=== PATIENT | female | born 1995 | race Caucasian/White ===

== ENCOUNTER 2017-02-28 06:12 | Emergency (ER) | payer MEDICAID ==
[2017-02-28] MEDS ORDERED: Sodium Chloride 0.9% 10 ML Syringe FLUSH PRN (06:27)
[2017-02-28] MEDS ORDERED: Ketorolac 30 MG/ML SDV IVPUSH ONE (07:06)
[2017-02-28] MEDS ORDERED: Ondansetron 4 MG/2 ML SDV IVPUSH ONE (07:07)
[2017-02-28] MEDS ORDERED: Iopamidol 755 Mg/ML 100 ML Bottle IV ONE (07:15)
--- NOTE | 2017-02-28 08:04 | ER ---
DATE SEEN: 02/28/2017 CHIEF COMPLAINT: Abdominal pain. HISTORY OF PRESENT ILLNESS: This is a 22-year-old female, complaining of abdominal pain for about 2 weeks, midepigastric pain with no radiation, associated with vomiting. Symptoms have not improved despite envc-oez-gxcdxll medications. PAST MEDICAL HISTORY: She has anxiety, ADHD, and no surgeries. Of note, she was here 2 years ago with similar symptoms. A CT at that time showed mesenteric adenitis. REVIEW OF SYSTEMS: Denies any chest pain, fever or chills, or urinary symptoms. Last period was about a week ago, normal. PHYSICAL EXAMINATION: GENERAL: She is anxious, but not in distress. VITAL SIGNS: Normal blood pressure and temperature. ABDOMEN: Nondistended. Exquisitely tender in the epigastrium and around the umbilicus. No rebound. Bowel sounds are present. No masses. IMPRESSION: Abdominal pain of uncertain etiology. PLAN: My plan is to obtain a CBC, CMP, amylase, urine , and CT of the abdomen and pelvis. I will have my colleague coming in on relay the results and discuss disposition and treatment afterwards. Time seen is 1825 hours. /[id number] KAYA/TESS
[2017-02-28] MEDS ORDERED: Alum Hydroxide/Mag Hydroxide 15 ML, Lidocaine 2% 15 ML PO ONE ×2 (09:16)
--- NOTE | 2017-02-28 09:58 | EDM.PDOC ---
ED HPI GENERAL MEDICAL PROBLEM - General Chief Complaint: Abdominal Pain Stated Complaint: STOMACH PAIN Time Seen by Provider: 02/28/17 07:00 Source of Information: Reports: Patient, Family History Limitations: Reports: No Limitations - History of Present Illness INITIAL COMMENTS - FREE TEXT/NARRATIVE: 22 years old w f came to the ed at 6.15 due to severe pain off and on for 4 weeks, getting worse. Pt was seen by my [facility] at 6 .15 am. Pt was signed out to me due to shift changes at 7 am, pending labs and abd. CT. Pt received Zofran here in the ed. Nausea has improved 80%, periumbilical abdominal pain is still present. Onset: Unknown/Unsure Onset Date: 01/29/17 Onset Time: 06:00 Duration: Week(s):, Getting Worse Location: Reports: Abdomen Quality: Reports: Ache, Burning, Dull Severity: Moderate Improves with: Reports: Rest Worsens with: Reports: Movement Epigastric Pain Score (Numeric/FACES): 5 - Related Data Allergies Allergy/AdvReac Type Severity Reaction Status Date / Time No Known Allergies Allergy Verified 02/28/17 06:24 Home Meds: Home Meds Pantoprazole Sodium [Protonix] 40 mg PO DAILY #10 tab 02/28/17 [Rx] Past Medical History - Past Health History Medical/Surgical History: Denies Medical/Surgical History Other Gastrointestinal History: abd pain Other OB/BYN History: pt notices more pain than normal with menstration Social & Family History - Tobacco Use Smoking Status *Q: Current Every Day Smoker Years of Tobacco use: 3 Packs/Tins Daily: 0.5 - Caffeine Use Caffeine Use: Reports: Soda - Recreational Drug Use Recreational Drug Use: No ED ROS GENERAL - Review of Systems Review Of Systems: See Below Constitutional: Reports: No Symptoms HEENT: Reports: No Symptoms Respiratory: Reports: No Symptoms Cardiovascular: Reports: No Symptoms Endocrine: Reports: No Symptoms GI/Abdominal: Reports: Abdominal Pain : Reports: No Symptoms Musculoskeletal: Reports: No Symptoms Skin: Reports: No Symptoms Neurological: Reports: No Symptoms Psychiatric: Reports: No Symptoms Hematologic/Lymphatic: Reports: No Symptoms Immunologic: Reports: No Symptoms ED EXAM, GI/ABD - Physical Exam Exam: See Below Exam Limited By: No Limitations General Appearance: Alert, WD/WN, Mild Distress Eyes: Bilateral: Normal Appearance Ears: Normal External Exam, Normal Canal Nose: Normal Inspection, Normal Mucosa Throat/Mouth: Normal Inspection, Normal Lips Head: Atraumatic, Normocephalic Neck: Normal Inspection, Supple, Non-Tender, Full Range of Motion Respiratory/Chest: No Respiratory Distress, Lungs Clear, Normal Breath Sounds, Chest Non-Tender Cardiovascular: Normal Peripheral Pulses, Regular Rate, Rhythm, No Edema GI/Abdominal Exam: Tender (periumbilical) (Female) Exam: Deferred Rectal (Female) Exam: Deferred Back Exam: Normal Inspection, Full Range of Motion Extremities: Normal Inspection, Normal Range of Motion, Non-Tender, No Pedal Edema Neurological: Alert, Oriented, CN II-XII Intact, Normal Cognition, Normal Gait, No Motor/Sensory Deficits Psychiatric: Normal Affect, Normal Mood Skin Exam: Warm, Dry, Intact Lymphatic: No Adenopathy Course - Vital Signs Text/Narrative:: 22 years old w f came to the ed at 6.15 due to severe pain off and on for 4 weeks, getting worse. Pt was seen by my [facility] at 6 .15 am. Pt was signed out to me due to shift changes at 7 am, pending labs and abd. CT. Pt received Zofran here in the ed. Nausea has improved 80%, periumbilical abdominal pain is still present. PE: Perumbilical pain, worse when turning to the right side of her body. Tender epigastric area Imaging: CT abd. NAD, Possible atelectasis at base of lung, official report is pending, US of pelvis: NAD Labs: CBC: WBC 3.6 HGB 13.6 Na 137 K 3.5 BUN 11 Cr 0.8 UA pos for ketons only Impression: Gastritis Tx: GI Caocktail Reexam: Pain subsided 100% Plan: D/C with instructions. Last Recorded V/S: Last Vital Signs Temp 36.8 C 02/28/17 09:59 Pulse 71 02/28/17 09:59 Resp 17 02/28/17 09:59 BP 127/76 02/28/17 09:59 Pulse Ox 100 02/28/17 09:59 - Orders/Labs/Meds Orders: Active Orders 24 hr Category Date Time Status Abdomen Pelvis w Cont [CT] Stat Exams 02/28/17 06:28 Taken Peripheral IV Insertion Adult [OM.PC] Routine Oth 02/28/17 06:26 Ordered Labs: Laboratory Tests 02/28/17 02/28/17 02/28/17 Range/Units 06:40 06:40 06:55 WBC 3.6 L (4.5-12.0) X10-3/uL RBC 3.97 (3.23-5.20) x10(6)uL Hgb 13.1 (11.5-15.5) g/dL Hct 38.3 (30.0-51.3) % MCV 96.3 H (80-96) fL MCH 32.9 (27.7-33.6) pg MCHC 34.2 (32.2-35.4) g/dL RDW 11.3 L (11.5-15.5) % Plt Count 198 (125-369) X10(3)uL MPV 7.8 (7.4-10.4) fL Neut % (Auto) 63.8 (46-82) % Lymph % (Auto) 27.1 (13-37) % [place] % (Auto) 5.6 (4-12) % Eos % (Auto) 3 (1.0-5.0) % Baso % (Auto) 1 (0-2) % Neut # (Auto) 2.3 (1.6-8.3) # Lymph # (Auto) 1.0 (0.6-5.0) # [place] # (Auto) 0.2 (0.0-1.3) # Eos # (Auto) 0.1 (0.0-0.8) # Baso # (Auto) 0.0 (0.0-0.2) # Sodium (135-145) mmol/L Potassium (3.5-5.3) mmol/L Chloride (100-110) mmol/L Carbon Dioxide (23-29) mmol/L BUN (5-20) mg/dL Creatinine (0.6-1.3) mg/dL Est Cr Clr Drug Dosing mL/min Estimated GFR (MDRD) (>60) BUN/Creatinine Ratio (9-20) Glucose (80-116) mg/dL Calcium (8.6-10.2) mg/dL Total Bilirubin (0.1-1.3) mg/dL AST (5-27) IU/L ALT (14-26) IU/L Alkaline Phosphatase (56-112) IU/L Total Protein (6.0-8.0) g/dL Albumin (3.5-5.2) g/dL Globulin g/dL Albumin/Globulin Ratio Amylase (28-100) U/L Urine Color Yellow (YELLOW) Urine Appearance Slightly cloudy (CLEAR) Urine pH 5.0 (5.0-6.5) Ur Specific [place] 1.015 (1.010-1.025) Urine Protein Negative (NEGATIVE) mg/dL Urine Glucose (UA) Normal (NEGATIVE) mg/dL Urine Ketones 150 H (NEGATIVE) mg/dL Urine Occult Blood Negative (NEGATIVE) Urine Nitrite Negative (NEGATIVE) Urine Bilirubin Negative (NEGATIVE) Urine Urobilinogen Normal (NEGATIVE) mg/dL Ur Leukocyte Esterase Negative (NEGATIVE) Urine RBC 0-5 (0) Urine WBC 0-5 (0) Ur Squamous Epith Cells Moderate H (NS,R,O) Urine Bacteria Moderate H (NS) Urine Mucus Few H (NS) Urine HCG, Qual Negative (NEGATIVE) 02/28/17 02/28/17 Range/Units 06:55 06:55 WBC (4.5-12.0) X10-3/uL RBC (3.23-5.20) x10(6)uL Hgb (11.5-15.5) g/dL Hct (30.0-51.3) % MCV (80-96) fL MCH (27.7-33.6) pg MCHC (32.2-35.4) g/dL RDW (11.5-15.5) % Plt Count (125-369) X10(3)uL MPV (7.4-10.4) fL Neut % (Auto) (46-82) % Lymph % (Auto) (13-37) % [place] % (Auto) (4-12) % Eos % (Auto) (1.0-5.0) % Baso % (Auto) (0-2) % Neut # (Auto) (1.6-8.3) # Lymph # (Auto) (0.6-5.0) # [place] # (Auto) (0.0-1.3) # Eos # (Auto) (0.0-0.8) # Baso # (Auto) (0.0-0.2) # Sodium 137 (135-145) mmol/L Potassium 3.5 (3.5-5.3) mmol/L Chloride 108 D (100-110) mmol/L Carbon Dioxide 22 L (23-29) mmol/L BUN 11 (5-20) mg/dL Creatinine 0.7 (0.6-1.3) mg/dL Est Cr Clr Drug Dosing 98.86 mL/min Estimated GFR (MDRD) > 60 (>60) BUN/Creatinine Ratio 15.7 (9-20) Glucose 103 (80-116) mg/dL Calcium 8.5 L (8.6-10.2) mg/dL Total Bilirubin 0.4 (0.1-1.3) mg/dL AST 21 (5-27) IU/L ALT 17 D (14-26) IU/L Alkaline Phosphatase 59 (56-112) IU/L Total Protein 6.8 (6.0-8.0) g/dL Albumin 4.1 (3.5-5.2) g/dL Globulin 2.7 g/dL Albumin/Globulin Ratio 1.5 Amylase 60 (28-100) U/L Urine Color (YELLOW) Urine Appearance (CLEAR) Urine pH (5.0-6.5) Ur Specific [place] (1.010-1.025) Urine Protein (NEGATIVE) mg/dL Urine Glucose (UA) (NEGATIVE) mg/dL Urine Ketones (NEGATIVE) mg/dL Urine Occult Blood (NEGATIVE) Urine Nitrite (NEGATIVE) Urine Bilirubin (NEGATIVE) Urine Urobilinogen (NEGATIVE) mg/dL Ur Leukocyte Esterase (NEGATIVE) Urine RBC (0) Urine WBC (0) Ur Squamous Epith Cells (NS,R,O) Urine Bacteria (NS) Urine Mucus (NS) Urine HCG, Qual (NEGATIVE) Meds: Medications Discontinued Medications Generic Name Dose Route Start Last Admin Trade Name Freq PRN Reason Stop Dose Admin Al Hydroxide/Mg Hydroxide 15 0 ml 02/28/17 09:16 02/28/17 09:23 ml/ Lidocaine HCl 15 ml PO 02/28/17 09:17 15 ml ONETIME ONE Administration Iopamidol 100 ml 02/28/17 07:15 02/28/17 07:24 Isovue-370 (76%) IV 02/28/17 07:16 75 ml . DIRECTED ONE Administration Ketorolac Tromethamine 30 mg 02/28/17 07:06 02/28/17 07:15 Toradol IVPUSH 02/28/17 07:07 30 mg ONETIME ONE Administration Ondansetron HCl 4 mg 02/28/17 07:07 02/28/17 07:12 Zofran IVPUSH 02/28/17 07:08 4 mg ONETIME ONE Administration Sodium Chloride 10 ml 02/28/17 06:27 02/28/17 07:13 Saline Flush FLUSH 10 ml ASDIRECTED PRN Administration Keep Vein Open Departure - Departure Time of Disposition: 09:54 Disposition: Home, Self-Care 01 Condition: Good Clinical Impression: Gastritis - Discharge Information Prescriptions: Pantoprazole Sodium [Protonix] 40 mg PO DAILY #10 tab Instructions: Gastritis, Adult, [id number] Referrals: PCP,None [Primary Care Provider] - Forms: ED Department Discharge, ED Return to Work/School Form Additional Instructions: Please take Maalox 30 cc every evening 3 hours after your last meal of the day for 5 days. please take Protonic in the morning for 10 days. Please f/u, come back if your symptoms get worse acutely.
[2017-02-28 09:59] VITALS: BP 127/76
--- NOTE | 2017-02-28 11:51 | US ---
INDICATION: Pelvic pain. PELVIC ULTRASOUND, NON-OB LIMITED: Multiple ultrasonic images were obtained with transabdominal probe. The uterus is anteverted. The urinary bladder is almost completely empty. The uterus measured 8.2 x 3.4 x 4.8 cm, with an endometrial cavity echo of approximately 3 mm. The ovaries were not seen. No definite adnexal mass lesion or free fluid collection was seen. IMPRESSION: No gross abnormalities identified. Need endovaginal probe ultrasound for better visualization of the uterus and for visualization of ovaries hopefully. INDICATION: Pelvic pain/unable to visualize right ovary on transabdominal pelvic ultrasound. TRANSVAGINAL NON-OB ULTRASOUND: Utilizing transvaginal probe, multiple ultrasonic images revealed the uterus to measure 7.5 x 3.1 x 4.8 cm with a 2.4- mm endometrial cavity. The right ovary measured 2.6 x 2.8 x 1.5 cm. The left ovary measured 2.4 x 1.5 x 2 cm. The endometrial cavity echo appeared normal. What appear to be prominent arcuate vessels are noted in the myometrium. The myometrium is slightly heterogeneous, however, no definite masses are identified. The ovaries had a normal appearance, with normal appearing follicles for the most part. However, on the right the follicles are somewhat numerous with an appearance suggesting a partial [id number] which can be seen with polycystic ovarian disease. These ovaries are not significantly enlarged, however, to strongly suggest that possibility - correlate clinically. No adnexal mass lesions or free fluid collections were identified. Normal ovarian blood flow was seen. IMPRESSION: Essentially normal pelvic ultrasound. Follicles are somewhat numerous and have an appearance of a chain or [id number] at the right ovary. This should be correlated clinically. It likely is an incidental finding, as the ovaries were not significantly enlarged. Polycystic ovarian disease felt to be unlikely - correlate clinically. MTDD
== END 2017-02-28 10:05 | disposition home or self-care (01) ==
LOC: FB.ED 06:12
DX: K29.70 Gastritis, unspecified, without bleeding (principal); F17.210 Nicotine dependence, cigarettes, uncomplicated
CPT/HCPCS: 36415; 74177; 76830; 76857; 80053; 81001; 81025; 82150; 85025; 96374; 96375; 99284; A9270; J1885; J2405; J7050; Q9967; 99283

== ENCOUNTER 2019-11-08 16:29 | Emergency (ER) | payer SELFPAY ==
[2019-11-08] MEDS ORDERED: Albuterol/Ipratropium 3.0-0.5 MG/3 ML Neb Soln NEB ONE (17:00)
--- NOTE | 2019-11-08 17:36 | EDM.PDOC ---
ED HPI GENERAL MEDICAL PROBLEM - General Chief Complaint: Respiratory Problem Stated Complaint: COVID SYMPTOMS Time Seen by Provider: 11/08/19 17:00 Source of Information: Reports: Patient History Limitations: Reports: No Limitations - History of Present Illness INITIAL COMMENTS - FREE TEXT/NARRATIVE: pt at about 20 weeks with EDC on Mar 19 comes in with c/o productive c ough and SOB as well rib pain from coughing , denies fever chills or , report mild diarrhea as well chronic nausea with her , denies any other associated sx or concerns. the above sx started about 5 days ago, pt report being exposed to a positive covid pt 4 days prior to that. pt indicate Hx of asthma and denies any other comorbidities. 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 Psychiatric History: Reports: ADHD Social & Family History - Tobacco Use Smoking Status *Q: Never Smoker - Caffeine Use Caffeine Use: Reports: None - Recreational Drug Use Recreational Drug Use: No ED ROS GENERAL - Review of Systems Review Of Systems: See Below Constitutional: Reports: Fatigue. Denies: Fever, Chills HEENT: Reports: No Symptoms Respiratory: Reports: Shortness of Breath, Wheezing, Cough Cardiovascular: Reports: No Symptoms GI/Abdominal: Reports: Anorexia, Diarrhea, Nausea. Denies: Vomiting : Reports: No Symptoms Musculoskeletal: Reports: No Symptoms Skin: Reports: No Symptoms Neurological: Reports: No Symptoms Psychiatric: Reports: No Symptoms ED EXAM, GENERAL - Physical Exam Exam: See Below Exam Limited By: No Limitations General Appearance: Alert, Mild Distress Eye Exam: Bilateral Eye: Normal Inspection Ears: Normal External Exam Nose: Normal Inspection Throat/Mouth: Normal Inspection, Normal Oropharynx Head: Atraumatic, Normocephalic Neck: Normal Inspection, Supple, Non-Tender Respiratory/Chest: Rhonchi, Wheezing. No: No Accessory Muscle Use, Stridor Cardiovascular: Normal Peripheral Pulses, Regular Rate, Rhythm, No Edema, No Murmur GI/Abdominal: Normal Bowel Sounds, Soft, Non-Tender, No Distention Extremities: Normal Inspection, Normal Range of Motion, Non-Tender Neurological: Alert, Oriented, CN II-XII Intact Psychiatric: Normal Affect Skin Exam: Warm Course - Vital Signs Text/Narrative:: CXR/ lab results were explained to pt. Covid test is neg. pt appear to have acute bronchitis with secondary ashma exacerbation. she was given solumedrol here , will be placed on zpack and prednisone for 5 days. pt was asked to apply self quarantine for 14 days from the day of known exposure to covid which was october. pt to contact a healthcare facility for any worsening of current symptoms. Last Recorded V/S: Last Vital Signs Temp 36.8 C 11/08/19 16:29 Pulse 120 H 11/08/19 17:00 Resp 18 11/08/19 16:29 BP 125/84 11/08/19 16:29 Pulse Ox 98 11/08/19 16:29 - Orders/Labs/Meds Orders: Active Orders 24 hr Category Date Time Status RT Aerosol Therapy [RC] ASDIRECTED Care 11/08/19 17:00 Active Labs: Laboratory Tests 11/08/19 11/08/19 11/08/19 Range/Units 16:43 17:15 17:15 WBC 10.6 (4.5-12.0) X10-3/uL RBC 3.44 (3.23-5.20) x10(6)uL Hgb 11.6 (11.5-15.5) g/dL Hct 33.6 (30.0-51.3) % MCV 97.7 H (80-96) fL MCH 33.7 H (27.7-33.6) pg MCHC 34.5 (32.2-35.4) g/dL RDW 12.2 (11.5-15.5) % Plt Count 256 (125-369) X10(3)uL MPV 8.0 (7.4-10.4) fL Neut % (Auto) 76.7 (46-82) % Lymph % (Auto) 18.5 (13-37) % [place] % (Auto) 3.2 L (4-12) % Eos % (Auto) 1 (1.0-5.0) % Baso % (Auto) 0 (0-2) % Neut # (Auto) 8.2 (1.6-8.3) # Lymph # (Auto) 2.0 (0.6-5.0) # [place] # (Auto) 0.3 (0.0-1.3) # Eos # (Auto) 0.1 (0.0-0.8) # Baso # (Auto) 0.0 (0.0-0.2) # Sodium 138 (135-145) mmol/L Potassium 3.4 L (3.5-5.3) mmol/L Chloride 103 (100-110) mmol/L Carbon Dioxide 22 (21-32) mmol/L BUN 13 (7-18) mg/dL Creatinine 0.8 (0.55-1.02) mg/dL Est Cr Clr Drug Dosing 81.12 mL/min Estimated GFR (MDRD) > 60 (>60) BUN/Creatinine Ratio 16.3 (9-20) Glucose 115 (80-116) mg/dL Calcium 9.0 (8.6-10.2) mg/dL Total Bilirubin 0.2 (0.1-1.3) mg/dL AST 15 (5-25) IU/L ALT 18 (12-36) U/L Alkaline Phosphatase 68 (56-112) IU/L Total Protein 6.9 (6.0-8.0) g/dL Albumin 3.3 L (3.5-5.2) g/dL Globulin 3.6 g/dL Albumin/Globulin Ratio 0.9 SARS Virus RNA (PCR) Negative (NEGATIVE) Meds: Medications Discontinued Medications Generic Name Dose Route Start Last Admin Trade Name Freq PRN Reason Stop Dose Admin Albuterol/Ipratropium 3 ml 11/08/19 17:00 11/08/19 17:00 Duoneb 3.0-0.5 Mg/3 Ml NEB 11/08/19 17:01 3 ml ONETIME ONE Administration Departure - Departure Time of Disposition: 18:21 Disposition: Home, Self-Care 01 Clinical Impression: Acute bronchitis - Discharge Information Referrals: PCP,None [Primary Care Provider] - Forms: ED Department Discharge Sepsis Event Note (ED) - Evaluation Sepsis Screening Result: No Definite Risk - Focused Exam Vital Signs: Vital Signs Temp Pulse Resp BP Pulse Ox 11/08/19 17:00 120 H 11/08/19 16:29 36.8 C 120 H 18 125/84 98 - My Orders Last 24 Hours: My Active Orders 11/08/19 17:00 RT Aerosol Therapy [RC] ASDIRECTED - Assessment/Plan Last 24 Hours: My Active Orders 11/08/19 17:00 RT Aerosol Therapy [RC] ASDIRECTED
--- NOTE | 2019-11-08 18:12 | CR ---
INDICATION: Cough/5 months . CHEST, ONE VIEW: An AP upright view of the chest was obtained 11/08/19 and compared with 07/13/13. The heart and mediastinum remain unremarkable. There is suggestion of a very minimal dextroconvex scoliosis of the mid thoracic spine. A definite active infiltrate or effusion was not identified. However, there is bronchial wall cuffing at the lower lung koch, which may be on the basis of active peribronchial disease and/or fibrosis, and should be correlated clinically. MTDD
[2019-11-08] MEDS ORDERED: methylPREDNISolone Sodium Succinate 125 MG/2 ML SDV IM ONE (18:22)
[2019-11-08] MEDS ORDERED: predniSONE 20 MG Tab PO ONE (18:24)
[2019-11-08] MEDS ORDERED: Azithromycin 250 MG Tab PO ONE (18:27)
[2019-11-08] MEDS ORDERED: Azithromycin 250 MG Tab PO SCH (18:30)
[2019-11-08 19:37] VITALS: BP 121/66; PULSE 104
== END 2019-11-08 18:44 | disposition home or self-care (01) ==
LOC: FB.ED 16:29
DX: O99.512 Diseases of the respiratory system complicating pregnancy, second trimester (principal); J20.9 Acute bronchitis, unspecified; Z20.828 Contact with and (suspected) exposure to other viral communicable diseases; Z3A.20 20 weeks gestation of pregnancy
CPT/HCPCS: 36415; 71045; 80053; 85025; 87635; 94640; 96372; 99285; A9270; J2930; J7620-GY; U0002

== ENCOUNTER 2020-03-18 19:15 | Emergency (ER) | payer MEDICAID, SELFPAY ==
[2020-03-18] MEDS ORDERED: Ondansetron 4 MG/2 ML SDV IVPUSH ONE (19:43)
[2020-03-18] MEDS ORDERED: Sodium Chloride 0.9% 10 ML Syringe FLUSH PRN (19:43)
[2020-03-18] MEDS ORDERED: Sodium Chloride 0.9% 1,000 ML IV SCH (19:45)
--- NOTE | 2020-03-18 19:49 | EDM.PDOC ---
ED HPI GENERAL MEDICAL PROBLEM - General Chief Complaint: Gastrointestinal Problem Stated Complaint: DEHYDRATED Time Seen by Provider: 03/18/20 19:46 Source of Information: Reports: Patient History Limitations: Reports: No Limitations - History of Present Illness INITIAL COMMENTS - FREE TEXT/NARRATIVE: Kamala is 25 you primi at 38w6d,she is comes with intractable nausea and v omiting since last night. No bleeding,no abdominal pain or contractions Lower abdomen Pain Score (Numeric/FACES): 6 - Related Data Allergies Allergy/AdvReac Type Severity Reaction Status Date / Time No Known Allergies Allergy Verified 03/18/20 19:27 Home Meds: Home Meds Budesonide [Pulmicort Flexhaler] 2 puff BID PRN 03/18/20 [History] Ondansetron [Ondansetron ODT] 4 mg ASDIRECTED PRN 03/18/20 [History] Vit #76/Iron,Carb/Fa [Prenatabs Rx] 1 each PO DAILY 03/18/20 [History] diphenhydrAMINE [Benadryl] 25 mg PO Q8H PRN 03/18/20 [History] polyethylene glycoL 3350 [MiraLAX] 17 gm PO DAILY PRN 03/18/20 [History] Past Medical History - Past Health History Medical/Surgical History: Denies Medical/Surgical History Respiratory History: Reports: Asthma Gastrointestinal History: Reports: Gastritis Other Gastrointestinal History: Abdominal pain. 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 ED EXAM - Physical Exam Exam: See Below Exam Limited By: No Limitations General Appearance: Alert, WD/WN, No Apparent Distress Ears: Normal External Exam Cardiovascular: Normal Peripheral Pulses Course - Vital Signs Last Recorded V/S: Last Vital Signs Temp 97.9 F 03/18/20 19:30 Pulse 76 03/18/20 19:30 Resp 20 03/18/20 19:30 BP 129/71 03/18/20 19:30 Pulse Ox 100 03/18/20 19:30 - Orders/Labs/Meds Orders: Active Orders 24 hr Category Date Time Status UA W/MICROSCOPIC [URIN] Stat Lab 03/18/20 19:43 Ordered Sodium Chloride 0.9% [Normal Saline] 1,000 ml Med 03/18/20 19:45 Active IV ASDIRECTED Sodium Chloride 0.9% [Saline Flush] Med 03/18/20 19:43 Active 10 ml FLUSH ASDIRECTED PRN Peripheral IV Insertion Adult [OM.PC] Routine Oth 03/18/20 19:43 Ordered Medication Orders Sodium Chloride (Normal Saline) 1,000 mls @ 999 mls/hr IV ASDIRECTED KIRSTEN Last Admin: 03/18/20 19:57 Dose: 999 mls/hr Documented by: DENNY Sodium Chloride (Saline Flush) 10 ml FLUSH ASDIRECTED PRN PRN Reason: Keep Vein Open Last Admin: 03/18/20 19:55 Dose: 10 ml Documented by: DENNY Labs: Laboratory Tests 03/18/20 03/18/20 Range/Units 19:57 19:57 WBC 7.9 (3.0-10.3) x10-3/uL RBC 3.83 (3.60-5.20) x10(6)uL Hgb 12.6 (11.4-15.5) g/dL Hct 37.5 (34.2-48.2) % MCV 97.8 (76.7-100.5) fL MCH 32.8 (23.9-33.9) pg MCHC 33.5 (31.9-34.8) g/dL RDW 13.1 (12.3-16.5) % Plt Count 217 (151-488) x10(3)uL MPV 8.8 (7.1-12.4) fL Neut % (Auto) 74.4 (30.8-76.2) % Lymph % (Auto) 19.8 (18.4-52.1) % [place] % (Auto) 4.5 (4.4-15.7) % Eos % (Auto) 0.5 L (0.6-8.1) % Baso % (Auto) 0.8 (0.2-1.5) % Neut # (Auto) 5.9 (1.5-6.3) x10-3/uL Lymph # (Auto) 1.6 (1.0-4.4) x10-3/uL [place] # (Auto) 0.4 (0.3-1.0) x10-3/uL Eos # (Auto) 0.0 (0.0-0.8) x10-3/uL Baso # (Auto) 0.1 (0.0-0.1) x10-3/uL Sodium 134 L (135-145) mmol/L Potassium 3.9 (3.5-5.3) mmol/L Chloride 100 (100-110) mmol/L Carbon Dioxide 19 L (21-32) mmol/L BUN 16 (7-18) mg/dL Creatinine 1.0 (0.55-1.02) mg/dL Est Cr Clr Drug Dosing 64.33 mL/min Estimated GFR (MDRD) > 60 (>60) BUN/Creatinine Ratio 16.0 (9-20) Glucose 72 L (80-116) mg/dL Calcium 9.1 (8.6-10.2) mg/dL Total Bilirubin 0.5 (0.1-1.3) mg/dL AST 22 D (5-25) IU/L ALT 20 D (12-36) U/L Alkaline Phosphatase 171 H (56-112) IU/L Total Protein 7.2 (6.0-8.0) g/dL Albumin 3.2 L (3.5-5.2) g/dL Globulin 4.0 g/dL Albumin/Globulin Ratio 0.8 Meds: Medications Generic Name Dose Route Start Last Admin Trade Name Freq PRN Reason Stop Dose Admin Sodium Chloride 1,000 mls @ 999 mls/hr 03/18/20 19:45 03/18/20 19:57 Normal Saline IV 999 mls/hr ASDIRECTED KIRSTEN Administration Sodium Chloride 10 ml 03/18/20 19:43 03/18/20 19:55 Saline Flush FLUSH 10 ml ASDIRECTED PRN Administration Keep Vein Open Discontinued Medications Generic Name Dose Route Start Last Admin Trade Name Freq PRN Reason Stop Dose Admin Ondansetron HCl 8 mg 03/18/20 19:43 03/18/20 19:57 Zofran IVPUSH 03/18/20 19:44 8 mg ONETIME ONE Administration Departure - Departure Time of Disposition: 22:30 Disposition: Home, Self-Care 01 Condition: Good Clinical Impression: Nausea/vomiting in - Discharge Information Instructions: Nausea and Vomiting, Adult, [id number] Referrals: Radha Parada [employer]PERINTENDENT [Primary Care Provider] - Forms: ED Department Discharge Additional Instructions: Activity as tolerated. Increase fluids as tolerated. Zofran as directed for nausea. Follow up with your regular MD as needed. Sepsis Event Note (ED) - Evaluation Sepsis Screening Result: No Definite Risk - Focused Exam Vital Signs: Vital Signs Temp Pulse Resp BP Pulse Ox 03/18/20 19:30 97.9 F 76 20 129/71 100 - Problem List & Annotations (1) Nausea/vomiting in SNOMED Code(s): 38841092, 657790696 Code(s): O21.9 - VOMITING OF , UNSPECIFIED Status: Acute Current Visit: Yes - Problem List Review Problem List Initiated/Reviewed/Updated: Yes - My Orders Last 24 Hours: My Active Orders 03/18/20 19:43 UA W/MICROSCOPIC [URIN] Stat Sodium Chloride 0.9% [Saline Flush] 10 ml FLUSH ASDIRECTED PRN Peripheral IV Insertion Adult [OM.PC] Routine 03/18/20 19:45 Sodium Chloride 0.9% [Normal Saline] 1,000 ml IV ASDIRECTED - Assessment/Plan Last 24 Hours: My Active Orders 03/18/20 19:43 UA W/MICROSCOPIC [URIN] Stat Sodium Chloride 0.9% [Saline Flush] 10 ml FLUSH ASDIRECTED PRN Peripheral IV Insertion Adult [OM.PC] Routine 03/18/20 19:45 Sodium Chloride 0.9% [Normal Saline] 1,000 ml IV ASDIRECTED Plan: 1 L Normal saline and IV Zofran.
[2020-03-19 09:43] VITALS: BP 113/62; PULSE 84
== END 2020-03-18 21:09 | disposition home or self-care (01) ==
LOC: FB.ED 19:15
DX: O21.9 Vomiting of pregnancy, unspecified (principal); O99.513 Diseases of the respiratory system complicating pregnancy, third trimester; J45.909 Unspecified asthma, uncomplicated; Z3A.39 39 weeks gestation of pregnancy; Z87.891 Personal history of nicotine dependence
CPT/HCPCS: 36415; 80053; 85025; 96374; 99284; J2405; J7030

== ENCOUNTER 2021-02-11 16:07 | Emergency (ER) | payer OTHER ==
[2021-02-11] MEDS ORDERED: Amoxicillin 500 MG Cap PO ONE ×2 (16:08→16:22)
--- NOTE | 2021-02-11 16:29 | EDM.PDOC ---
ED HPI GENERAL MEDICAL PROBLEM - General Chief Complaint: ENT Problem Stated Complaint: COUGH, FEVER, SOB Time Seen by Provider: 02/11/21 16:15 Source of Information: Reports: Patient, Old Records, RN History Limitations: Reports: No Limitations - History of Present Illness INITIAL COMMENTS - FREE TEXT/NARRATIVE: 26 yo female with a pHx of asthma presents with a cough that is occasionally productive, nasal discharge(often yellow) and decreased hearing in both ears. No fever. Was seen in the walkin clinic and given prednisone due to some wheezing she had and didn't improve on it. Has a nebulizer at home that gives her minimal benefit. Is mildly SOB. Had negative Covid test during this illness. Onset: Gradual Duration: Week(s):, Getting Worse Location: Reports: Head, Face, Chest Quality: Reports: Other (no pain) Severity: Moderate Improves with: Reports: None Worsens with: Reports: Other (time) Context: Reports: Other (See HPI) Associated Symptoms: Reports: Cough, Shortness of Breath (mild), Other (rhinorrhea and decreased hearing R>L). 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) - Related Data Allergies Allergy/AdvReac Type Severity Reaction Status Date / Time No Known Allergies Allergy Verified 03/18/20 19:27 Home Meds: Home Meds Budesonide [Pulmicort Flexhaler] 2 puff BID PRN 03/18/20 [History] Ondansetron [Ondansetron ODT] 4 mg ASDIRECTED PRN 03/18/20 [History] Vit #76/Iron,Carb/Fa [Prenatabs Rx] 1 each PO DAILY 03/18/20 [History] diphenhydrAMINE [Benadryl] 25 mg PO Q8H PRN 03/18/20 [History] polyethylene glycoL 3350 [MiraLAX] 17 gm PO DAILY PRN 03/18/20 [History] Past Medical History - Past Health History Medical/Surgical History: Denies Medical/Surgical History Respiratory History: Reports: Asthma Gastrointestinal History: Reports: Gastritis Other Gastrointestinal History: Abdominal pain. 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 Denies: Ear Discharge, Ear Pain (decreased hearing both ears, R ear is worse) Respiratory: Reports: Cough, Sputum (yellow) Cardiovascular: Reports: No Symptoms GI/Abdominal: Reports: No Symptoms Skin: Reports: No Symptoms Neurological: Reports: No Symptoms Psychiatric: Reports: No Symptoms ED EXAM, ENT - Physical Exam Exam: See Below Exam Limited By: No Limitations General Appearance: Alert, WD/WN, No Apparent Distress Eye Exam: Bilateral Eye: Normal Inspection Ears: Normal External Exam, Normal Canal, TM Dullness (bilat), TM Erythema (left ), TM Fluid. No: Hearing Grossly Normal, Normal TMs Nose: Other (cloudy, slightly yellow tinged nasal discharge) Mouth/Throat: Normal Inspection, Normal Lips, Normal Oropharynx Head: Atraumatic, Normocephalic Neck: Normal Inspection. No: Lymphadenopathy (R), Lymphadenopathy (L) Respiratory/Chest: No Accessory Muscle Use, Rhonchi, Wheezing, Other (frequent cough). No: No Respiratory Distress, Lungs Clear, Normal Breath Sounds, Crackles, Rales Cardiovascular: Regular Rate, Rhythm Back: Normal Inspection Extremities: Normal Inspection Neurological: Alert, Oriented, CN II-XII Intact, Normal Cognition, No Motor/Sensory Deficits Psychiatric: Normal Affect, Normal Mood Skin: Warm, Dry, Intact, Normal Color, No Rash Course - Orders/Labs/Meds Orders: Active Orders 24 hr Category Date Time Status Amoxicillin [Amoxil] Med 02/11/21 16:22 Once 1,000 mg PO ONETIME ONE Departure - Departure Time of Disposition: 16:35 Disposition: Home, Self-Care 01 Condition: Fair Clinical Impression: Bronchospasm Bilateral otitis media Qualifiers: Otitis media type: suppurative Chronicity: acute Recurrence: non-recurrent Spontaneous tympanic membrane rupture: without spontaneous rupture Qualified Code(s): H66.003 - Acute suppurative otitis media without spontaneous rupture of ear drum, bilateral Sinusitis Qualifiers: Sinusitis location: unspecified location Chronicity: acute Recurrence: non- recurrent Qualified Code(s): J01.90 - Acute sinusitis, unspecified - Discharge Information *PRESCRIPTION DRUG MONITORING PROGRAM REVIEWED*: Not Applicable *COPY OF PRESCRIPTION DRUG MONITORING REPORT IN PATIENT DORETHA: Not Applicable Instructions: Otitis Media, Adult, [id number], Sinusitis, Adult, [id number], Bronchospasm, Adult, [id number] Referrals: PCP,None [Primary Care Provider] - Forms: ED Department Discharge Additional Instructions: Take amoxicillin every 8 hrs until gone. Continue use of your nebulizer treatments. Consider use of Robitussin or Robitussin DM to loosen secretions and reduce cough. Add acetaminophen as needed for pain or fever control. Drink ample fluids and consider use a humidifier. Recheck in the clinic a week from tomorrow, sooner if worse. - My Orders Last 24 Hours: My Active Orders 02/11/21 16:22 Amoxicillin [Amoxil] 1,000 mg PO ONETIME ONE - Assessment/Plan Last 24 Hours: My Active Orders 02/11/21 16:22 Amoxicillin [Amoxil] 1,000 mg PO ONETIME ONE
[2021-02-11 17:16] VITALS: BP 129/82; PULSE 96
== END 2021-02-11 16:45 | disposition home or self-care (01) ==
LOC: FB.ED 16:07
DX: J98.01 Acute bronchospasm (principal); J01.90 Acute sinusitis, unspecified; H66.003 Acute suppurative otitis media without spontaneous rupture of ear drum, bilateral
CPT/HCPCS: 99283; A9270

== ENCOUNTER 2021-06-30 17:44 | Emergency (ER) | payer MEDICAID ==
[2021-06-30] MEDS ORDERED: Ondansetron 4 MG Tab.DIS PO ONE (17:45)
[2021-06-30] MEDS: Ondansetron 4 MG/2 ML SDV IVPUSH ONE (18:07)
[2021-06-30] MEDS: Lactated Ringers 1,000 ML IV ONE (18:07)
[2021-06-30 18:18] VITALS: BP 130/76; PULSE 89
[2021-06-30 19:07] LABS: CORONAVIRUS COVID-19 NAA NEGATIVE (NEGATIVE)
[2021-06-30] MEDS: Pantoprazole 40 MG Vial IVPUSH ONE (19:15)
[2021-06-30] MEDS: Ketorolac 30 MG/ML SDV IVPUSH ONE (19:15)
== END 2021-06-30 19:30 | disposition home or self-care (01) ==
LOC: FB.ED 17:44
DX: A08.4 Viral intestinal infection, unspecified (principal); R11.2 Nausea with vomiting, unspecified; Z20.822 Contact with and (suspected) exposure to COVID-19
CPT/HCPCS: 0240U; 36415; 80048; 85025; 96374; 96375; 99283; 99284-25; C9113; J1885; J2405; J7120; Q0162